=== PATIENT | male | born 1945 | race Caucasian/White ===

== ENCOUNTER 2017-04-27 19:51 | Emergency (ER) | payer MEDICARE, BC ==
[~2017-04-27] VITALS: Ht 177.8 cm; Wt 118.2 kg
[2017-04-27] MEDS ORDERED: LIDOCAINE 1%, 20ML SQ ONE (20:30)
[2017-04-27] MEDS ORDERED: DIPH,PERTUSS(ACELL),TET VAC/PF 0.5 ML IM-VACC ONE ×2 (20:30→21:59)
[2017-04-27] MEDS ORDERED: LIDOCAINE 1%, 20ML ONE (20:56)
[2017-04-27] MEDS ORDERED: BACITRACIN ZINC OINT 500U/GM, 0.9 GM ONE (22:50)
[2017-04-27 22:59] VITALS: BP 156/96
== END 2017-04-27 23:08 | disposition home or self-care (01) ==
LOC: ED 23:00
DX: S01.01XA Laceration without foreign body of scalp, initial encounter (principal); Z23 Encounter for immunization; W19.XXXA Unspecified fall, initial encounter; Y93.64 Activity, baseball; Y99.8 Other external cause status; Y92.89 Other specified places as the place of occurrence of the external cause
CPT/HCPCS: 12002; 70450; 72125; 90471; 90715